=== PATIENT | male | born 1950 | race Caucasian/White ===

== ENCOUNTER → 2018-09-19 | Outpatient (CLI) | payer MEDICARE ==
[~2018-09-19] MED LIST: ALFU10TA12 PO; ALPR0.5T; ASPI-231 PO; ATOR20TA50 PO; CHOL20007 PO; FINA5TAB4 PO; FLUO-125 PO; OMEP20CA74 PO; TRAZ100T2
[2018-09-19 14:48] LABS: Basophils # (auto) 0.1 uL; Basophils % (auto) 0.9 % (0.0-2.0); Eosinophils # (auto) 0.2 uL; Eosinophils % (auto) 2.1 % (0.0-7.0); Hematocrit 48.5 % (41.0-53.0); Hemoglobin 16.6 g/dL (13.5-17.5); Lymphocytes # (auto) 1.9 uL; Lymphocytes % (auto) 26.6 % (10.0-50.0); Mean Corpuscular Hemoglobin 29.9 pg (28.0-32.0); Mean Corpuscular Hgb Conc. 34.3 g/dL (32.0-36.0); Mean Corpuscular Volume 87.1 fL (80.0-100.0); Monocytes # (auto) 0.5 uL; Monocytes % (auto) 6.3 % (0.0-12.0); Neutrophils # (auto) 4.6 uL; Neutrophils % (auto) 64.1 % (37.0-80.0); Nucleated Red Blood Cells % 0.2 %; Platelet Count (auto) 221 10^3/uL (140-450); Red Blood Cells 5.57 10^6/uL (4.5-5.90); Red Cell Distribution Width 13.8 % (11.8-14.3); White Blood Cell 7.2 10^3/uL (4.4-10.8)
[2018-09-19 14:52] LABS: Urine Bacteria NONE SEEN /hpf (None Seen); Urine Blood 1+ /uL (Negative); Urine WBC 3 /hpf (0 - 3)
[2018-09-19 15:55] LABS: Calcium 9.1 mg/dL (8.5-10.1); Potassium 4.3 mmol/L (3.5-5.1)
[2018-09-19 16:05] LABS: BUN/Creatinine Ratio 10.1; Bilirubin, Total 0.7 mg/dL (0.2-1.0); Free T4 (Free Thyroxine) 1.06 ng/dL (0.89-1.76); Prostate Specific Antigen 0.14 ng/mL (0.0-4.0)
== END | disposition home or self-care (01) ==
LOC: LAB 14:26
PROVIDERS: ATTEND Internal Medicine
DX: K21.9 Gastro-esophageal reflux disease without esophagitis (principal); R35.1 Nocturia; M79.2 Neuralgia and neuritis, unspecified; R73.9 Hyperglycemia, unspecified; E78.5 Hyperlipidemia, unspecified
CPT/HCPCS: 36415; 80053; 80061; 81001; 82607; 83036; 84153; 84439; 84443; 85025; 85652

== ENCOUNTER → 2020-10-18 | Outpatient (CLI) | payer MEDICARE, OTHER ==
[~2020-10-18] MED LIST changes: -ALFU10TA12 PO; +ALFU10TA33 PO; -TRAZ100T2; +TRAZ100T3
== END | disposition home or self-care (01) ==
LOC: LAB 15:32
PROVIDERS: ATTEND Family Medicine
DX: L72.3 Sebaceous cyst (principal)
CPT/HCPCS: 36415; 86703; 86803

== ENCOUNTER → 2020-11-01 | Outpatient (CLI) | payer OTHER | END | disposition home or self-care (01) | LOC: LAB 12:51 | PROVIDERS: ATTEND Family Medicine | DX: L72.3 Sebaceous cyst (principal) ==

== ENCOUNTER 2020-12-08 19:17 | Emergency (ER) | payer OTHER ==
[~2020-12-08] VITALS: Ht 170.2 cm; Wt 78.0 kg
[2020-12-08 19:27] VITALS: BP 132/71
[2020-12-08] MEDS ORDERED: HYDROcodone-ACET 5/325MG TAB PO ONE (21:15)
== END 2020-12-08 21:46 | disposition home or self-care (01) ==
LOC: ER 19:17
DX: S42.202A Unspecified fracture of upper end of left humerus, initial encounter for closed fracture (principal); I25.2 Old myocardial infarction; E78.5 Hyperlipidemia, unspecified; Z86.73 Personal history of transient ischemic attack (TIA), and cerebral infarction without residual deficits; Z79.899 Other long term (current) drug therapy; W01.0XXA Fall on same level from slipping, tripping and stumbling without subsequent striking against object, initial encounter; Y93.89 Activity, other specified; Y92.89 Other specified places as the place of occurrence of the external cause; Y99.8 Other external cause status

== ENCOUNTER → 2021-03-23 | Outpatient (CLI) | payer OTHER ==
[2021-03-23 09:39] LABS: Basophils # (auto) 0.1 10 ^3/uL (0-0.2); Basophils % (auto) 1.2 % (0.0-2.0); Eosinophils # (auto) 0.2 10 ^3/uL (0-0.8); Eosinophils % (auto) 2.1 % (0.0-7.0); Hematocrit 46.2 % (41.0-53.0); Lymphocytes # (auto) 2.5 10 ^3/uL (0.4-5.4); Lymphocytes % (auto) 26.7 % (10.0-50.0); Mean Corpuscular Hemoglobin 29.8 pg (28.0-32.0); Mean Corpuscular Hgb Conc. 34.6 g/dL (32.0-36.0); Mean Corpuscular Volume 86.2 fL (80.0-100.0); Monocytes # (auto) 0.7 10 ^3/uL (0-1.3); Neutrophils # (auto) 5.9 10 ^3/uL (1.6-8.6); Red Blood Cells 5.35 10^6/uL (4.5-5.90); Red Cell Distribution Width 14.2 % (11.8-14.3); White Blood Cell 9.3 10^3/uL (4.4-10.8)
[2021-03-23 09:48] LABS: Urine Bacteria NONE SEEN /hpf (None Seen); Urine Blood 1+ /uL (Negative); Urine Specific Gravity 1.018 (1.001-1.035); Urine WBC 1 /hpf (0 - 3)
[2021-03-23 10:10] LABS: Albumin 3.5 g/dL (3.4-5.0); Potassium 4.1 mmol/L (3.5-5.1)
[2021-03-23 10:15] LABS: BUN/Creatinine Ratio 8.6; Bilirubin, Total 0.7 mg/dL (0.2-1.0); Total Protein 7.5 g/dL (6.4-8.2)
[2021-03-23 10:32] LABS: Free T4 (Free Thyroxine) 1.22 ng/dL (0.89-1.76); Prostate Specific Antigen 0.17 ng/mL (0.0-4.0)
== END | disposition home or self-care (01) ==
LOC: LAB 09:22
PROVIDERS: ATTEND Internal Medicine
DX: N40.0 Benign prostatic hyperplasia without lower urinary tract symptoms (principal); R35.1 Nocturia
CPT/HCPCS: 36415; 80053; 80061; 81001; 83036; 84153; 84439; 84443; 85025; 85652

== ENCOUNTER 2021-08-07 15:21 | Emergency (ER) | payer OTHER ==
[~2021-08-07] VITALS: Ht 175.3 cm; Wt 80.7 kg
[~2021-08-07 15:21] MED LIST changes: -ASPI-231 PO; +ASPI1TAB20 PO
[2021-08-07 15:37] VITALS: BP 155/85
== END 2021-08-07 19:24 | disposition left against medical advice (07) ==
LOC: ER 15:21 → EDBD 15:21 → ER 19:24
DX: R07.89 Other chest pain (principal); E78.5 Hyperlipidemia, unspecified; I25.2 Old myocardial infarction; F17.210 Nicotine dependence, cigarettes, uncomplicated; F12.10 Cannabis abuse, uncomplicated; Z53.29 Procedure and treatment not carried out because of patient's decision for other reasons; Z86.73 Personal history of transient ischemic attack (TIA), and cerebral infarction without residual deficits
CPT/HCPCS: 93005